=== PATIENT | female | born 1955 | race African-American/Black ===

== ENCOUNTER 2018-05-13 19:11 | Inpatient (IN) | payer OTHER ==
[~2018-05-13] VITALS: Ht 170.2 cm; Wt 127.0 kg
[2018-05-14] MEDS ORDERED: IPRATROPIUM BROMIDE (0.02%) 0.5MG/2.5ML NEB HHN STA (02:10)
[2018-05-14] MEDS ORDERED: ALBUTEROL (0.083%) 2.5MG/3ML NEB HHN STA (02:10)
[2018-05-14 02:43] LABS: BASOPHILS % 0.3 % (0.0-2.0); EOSINOPHILS % 2.1 % (0.0-5.0); HEMATOCRIT. 40.6 % (36.0-48.0); HEMOGLOBIN. 13.2 g/dL (12.0-16.0); LYMPHOCYTES % 26.6 % (20.0-50.0); MEAN CORPUSCULAR HEMOGLOBIN 28.7 pg (28.0-32.0); MEAN CORPUSCULAR VOLUME 88.7 fL (81.0-99.0); MEAN PLATELET VOLUME 10.1 fl (7.4-10.4); PLATELET 157 x1000/uL (130-400); RED BLOOD CELL COUNT 4.58 mill/uL (4.2-5.4); RED CELL DISTRIBUTION WIDTH 14.4 % (11.6-14.6)
[2018-05-14 02:49] LABS: CHLORIDE 112 mEq/L (98-107)
[2018-05-14] MEDS ORDERED: ACETAMINOPHEN 325MG TABLET PO ONE (05:30)
[2018-05-14] MEDS ORDERED: ONDANSETRON HCL 4MG/2ML INJ IV PRN (08:30)
[2018-05-14] MEDS ORDERED: IPRATROPIUM/ALBUTEROL 0.5-3(2.5)MG/3ML NEB HHN PRN (08:30)
[2018-05-14] MEDS ORDERED: GUAIFENESIN-DM 200MG-20MG/10ML UDC PO PRN (08:30)
[2018-05-14] MEDS: METHYLPREDNISOLONE SOD SUCC 40 MG/ML VIAL IV SCH ×2 (08:59→16:56)
[2018-05-14] MEDS: ACETAMINOPHEN 325MG TABLET PO PRN (09:38)
[2018-05-14] MEDS ORDERED: HYDR-3511 MT (10:13)
[2018-05-14] MEDS ORDERED: MAGN250T29 MT (10:13)
[2018-05-14] MEDS ORDERED: POTA25TA13 MT (10:13)
[2018-05-14] MEDS ORDERED: ASPI-1158 MT (10:15)
[2018-05-14] MEDS ORDERED: FURO-151 MT (10:15)
[2018-05-14] MEDS ORDERED: ATOR20TA65 MT (10:15)
[2018-05-14] MEDS ORDERED: ISOS120T9 MT (10:15)
[2018-05-14 12:01] VITALS: BP 129/41
[2018-05-14 12:02] VITALS: BP 129/79
[2018-05-14] MEDS: IPRATROPIUM/ALBUTEROL 0.5-3(2.5)MG/3ML NEB HHN SCH ×3 (12:21→20:55)
[2018-05-14 13:08] VITALS: BP 116/55
[2018-05-14] MEDS ORDERED: HYDR200T35 MT (13:13)
[2018-05-14] MEDS ORDERED: METH25VI63 SQ (13:13)
[2018-05-14] MEDS ORDERED: LORA10TA7 MT (13:15)
[2018-05-14] MEDS ORDERED: GABA-290 MT (13:15)
[2018-05-14] MEDS ORDERED: GLIP5POW MC (13:15)
[2018-05-14] MEDS ORDERED: METO25TA6 MT (13:15)
[2018-05-14] MEDS: HYDROCODONE/ACETAMINOPHEN 5/325MG TABLET PO PRN ×2 (14:18→21:09)
[2018-05-14 16:00] VITALS: BP 152/91
[2018-05-14] MEDS: MONTELUKAST SODIUM 10MG TABLET PO SCH (16:57)
[2018-05-14] MEDS ORDERED: FUROSEMIDE 40MG/4ML VIAL IVP NR (18:15)
[2018-05-14 20:00] VITALS: BP 140/72
[2018-05-14] MEDS: ENOXAPARIN 30MG/0.3ML SYR SUBCUT SCH (21:10)
[2018-05-15] VITALS: BP 151/95
[2018-05-15] MEDS: IPRATROPIUM/ALBUTEROL 0.5-3(2.5)MG/3ML NEB HHN SCH ×6 (00:39→20:58)
[2018-05-15] MEDS: METHYLPREDNISOLONE SOD SUCC 40 MG/ML VIAL IV SCH ×3 (01:10→17:33)
[2018-05-15] MEDS: HYDROCODONE/ACETAMINOPHEN 5/325MG TABLET PO PRN (01:10)
[2018-05-15] MEDS: ACETAMINOPHEN 325MG TABLET PO PRN ×3 (01:16→17:47)
[2018-05-15 04:00] VITALS: BP 119/69
[2018-05-15] MEDS ORDERED: METHOTREXATE SODIUM SQ SCH (04:45)
[2018-05-15 04:51] LABS: CLARITY URINE CLEAR (CLEAR); COLOR URINE YELLOW (YELLOW); KETONES URINE NEGATIVE (NEGATIVE); LEUKOCYTE ESTERASE URINE NEGATIVE (NEGATIVE); NITRITE URINE NEGATIVE (NEGATIVE); OCCULT BLOOD URINE NEGATIVE (NEGATIVE); PROTEIN URINE NEGATIVE (NEGATIVE); SPECIFIC GRAVITY URINE 1.011 (1.005-1.030); UROBILINOGEN URINE 0.2 E.U./dL (0.2-1.0)
[2018-05-15] MEDS ORDERED: HYDROCODONE/ACETAMINOPHEN 5/325MG TABLET PO PRN (05:00)
[2018-05-15 05:05] LABS: *BARBITURATES SCREEN URINE NEGATIVE (NEGATIVE); *BENZODIAZEPINES SCREEN URINE NEGATIVE (NEGATIVE)
[2018-05-15 05:06] LABS: *AMPHETAMINES SCREEN URINE NEGATIVE (NEGATIVE); *COCAINE SCREEN URINE NEGATIVE (NEGATIVE); CANNABINOID URINE SCREEN NEGATIVE (NEGATIVE); METHADONE URINE SCREEN NEGATIVE (NEGATIVE); OPIATES URINE SCREEN PRESUMTIVE POSITIVE (NEGATIVE); PHENCYCLIDINE URINE SCREEN NEGATIVE (NEGATIVE)
[2018-05-15 06:55] LABS: BASOPHILS % 0.1 % (0.0-2.0); HEMATOCRIT. 42.8 % (36.0-48.0); HEMOGLOBIN. 13.9 g/dL (12.0-16.0); LYMPHOCYTES % 12.5 % (20.0-50.0); MEAN CORPUSCULAR HEMOGLOBIN 28.8 pg (28.0-32.0); MEAN CORPUSCULAR VOLUME 88.6 fL (81.0-99.0); MEAN PLATELET VOLUME 10.2 fl (7.4-10.4); MONOCYTES % 2.6 % (2.0-8.0); NEUTROPHILS % 84.8 % (40.0-76.0); PLATELET 172 x1000/uL (130-400); RED BLOOD CELL COUNT 4.83 mill/uL (4.2-5.4); RED CELL DISTRIBUTION WIDTH 14.2 % (11.6-14.6)
[2018-05-15 08:00] VITALS: BP 149/89
[2018-05-15] MEDS ORDERED: MEDICATION NOT ON FORMULARY EA (Furosemide (Lasix) 1 TAB) MT SCH (09:00)
[2018-05-15] MEDS ORDERED: MEDICATION NOT ON FORMULARY EA (Magnesium Oxide (Magnesium) 1 TAB) MT SCH (09:00)
[2018-05-15] MEDS ORDERED: HYDROXYCHLOROQUINE SULFATE MT SCH (09:00)
[2018-05-15] MEDS ORDERED: MEDICATION NOT ON FORMULARY EA (Aspirin (Aspirin Ec) 1 TAB) MT SCH (09:00)
[2018-05-15] MEDS ORDERED: MEDICATION NOT ON FORMULARY EA (Metoprolol Tartrate 1 TAB) MT SCH (09:00)
[2018-05-15] MEDS ORDERED: MEDICATION NOT ON FORMULARY EA (Gabapentin 1 TAB) MT SCH (09:00)
[2018-05-15] MEDS ORDERED: FUROSEMIDE 40MG TABLET PO SCH (09:00)
[2018-05-15] MEDS ORDERED: [UNRECOGNIZED DRUG - OTHER] MT SCH (09:00)
[2018-05-15] MEDS: FUROSEMIDE 40MG/4ML VIAL IVP SCH (09:09)
[2018-05-15] MEDS: ASPIRIN 81MG EC TABLET PO SCH (09:10)
[2018-05-15] MEDS: GABAPENTIN 300MG CAPSULE PO SCH ×3 (09:10→17:33)
[2018-05-15] MEDS: HYDROXYCHLOROQUINE SULFATE 200MG TABLET PO SCH ×2 (09:10→17:41)
[2018-05-15] MEDS: LORATADINE 10MG TABLET PO SCH (09:10)
[2018-05-15] MEDS: METOPROLOL TARTRATE 25MG TABLET PO SCH ×2 (09:10→21:00)
[2018-05-15] MEDS: POTASSIUM BICARB/CIT ACID 25 MEQ TABLET.EFF PO SCH (09:10)
[2018-05-15] MEDS: ENOXAPARIN 30MG/0.3ML SYR SUBCUT SCH ×2 (09:13→21:18)
[2018-05-15] MEDS ORDERED: GUAIFENESIN/CODEINE 100-10MG/5ML UDC PO PRN (09:45)
[2018-05-15 10:31] LABS: CHLORIDE 108 mEq/L (98-107)
[2018-05-15] MEDS: FLUTICASONE PROPIONATE 50MCG/SPRAY BOTTLE BOTHNSTRLS SCH ×2 (12:24→21:19)
[2018-05-15] MEDS: ISOSORBIDE MONONITRATE 120MG TABLET SR 24HR PO SCH (12:24)
[2018-05-15 12:31] VITALS: BP 140/90
[2018-05-15 16:00] VITALS: BP 106/68
[2018-05-15] MEDS ORDERED: MONTELUKAST SODIUM 10MG TABLET PO SCH (17:00)
[2018-05-15] MEDS: MONTELUKAST SODIUM 10MG TABLET PO SCH (17:33)
[2018-05-15] MEDS: DOCUSATE SODIUM 250MG CAPSULE PO PRN (17:34)
[2018-05-15 20:00] VITALS: BP 101/59
[2018-05-15] MEDS: FAMOTIDINE 20MG/2ML VIAL IV SCH (21:18)
[2018-05-15] MEDS: ATORVASTATIN CALCIUM 20MG TABLET PO SCH (21:18)
[2018-05-16] VITALS: BP 110/69
[2018-05-16] MEDS: METHYLPREDNISOLONE SOD SUCC 40 MG/ML VIAL IV SCH ×3 (00:57→16:06)
[2018-05-16] MEDS: ACETAMINOPHEN 325MG TABLET PO PRN ×2 (00:58→16:07)
[2018-05-16] MEDS: IPRATROPIUM/ALBUTEROL 0.5-3(2.5)MG/3ML NEB HHN SCH ×6 (01:00→21:32)
[2018-05-16 07:54] LABS: BASOPHILS % 0.1 % (0.0-2.0); HEMATOCRIT. 40.3 % (36.0-48.0); LYMPHOCYTES % 12.9 % (20.0-50.0); MEAN CORPUSCULAR HEMOGLOBIN 28.7 pg (28.0-32.0); MEAN CORPUSCULAR VOLUME 88.7 fL (81.0-99.0); MEAN PLATELET VOLUME 9.7 fl (7.4-10.4); MONOCYTES % 3.1 % (2.0-8.0); NEUTROPHILS % 83.9 % (40.0-76.0); PLATELET 164 x1000/uL (130-400); RED BLOOD CELL COUNT 4.54 mill/uL (4.2-5.4); RED CELL DISTRIBUTION WIDTH 14.2 % (11.6-14.6)
[2018-05-16 08:00] VITALS: BP 117/75
[2018-05-16 08:00] LABS: CHLORIDE 105 mEq/L (98-107)
[2018-05-16] MEDS: METOPROLOL TARTRATE 25MG TABLET PO SCH ×2 (09:00→20:52)
[2018-05-16] MEDS: FLUTICASONE PROPIONATE 50MCG/SPRAY BOTTLE BOTHNSTRLS SCH ×2 (09:35→20:52)
[2018-05-16] MEDS: POTASSIUM BICARB/CIT ACID 25 MEQ TABLET.EFF PO SCH (09:35)
[2018-05-16] MEDS: FUROSEMIDE 40MG/4ML VIAL IVP SCH (09:36)
[2018-05-16] MEDS: FAMOTIDINE 20MG/2ML VIAL IV SCH ×2 (09:36→20:51)
[2018-05-16] MEDS: ASPIRIN 81MG EC TABLET PO SCH (09:36)
[2018-05-16] MEDS: DOCUSATE SODIUM 250MG CAPSULE PO PRN (09:37)
[2018-05-16] MEDS: HYDROXYCHLOROQUINE SULFATE 200MG TABLET PO SCH ×2 (09:37→17:09)
[2018-05-16] MEDS: LORATADINE 10MG TABLET PO SCH (09:37)
[2018-05-16] MEDS: ISOSORBIDE MONONITRATE 120MG TABLET SR 24HR PO SCH (09:37)
[2018-05-16] MEDS: GABAPENTIN 300MG CAPSULE PO SCH ×3 (09:38→17:09)
[2018-05-16] MEDS: ENOXAPARIN 30MG/0.3ML SYR SUBCUT SCH ×2 (09:38→20:51)
[2018-05-16] MEDS: GLIPIZIDE 5MG TABLET PO SCH (10:49)
[2018-05-16 11:46] VITALS: BP 104/67
[2018-05-16 15:57] VITALS: BP 107/74
[2018-05-16] MEDS: MONTELUKAST SODIUM 10MG TABLET PO SCH (17:09)
[2018-05-16 20:00] VITALS: BP 131/83
[2018-05-16] MEDS: ATORVASTATIN CALCIUM 20MG TABLET PO SCH (20:52)
[2018-05-17] VITALS: BP 115/69
[2018-05-17] MEDS: METHYLPREDNISOLONE SOD SUCC 40 MG/ML VIAL IV SCH ×3 (00:05→17:01)
[2018-05-17] MEDS: ACETAMINOPHEN 325MG TABLET PO PRN ×2 (00:11→09:49)
[2018-05-17] MEDS: IPRATROPIUM/ALBUTEROL 0.5-3(2.5)MG/3ML NEB HHN SCH ×6 (01:20→20:24)
[2018-05-17 04:00] VITALS: BP 139/92
[2018-05-17 08:00] VITALS: BP 134/77
[2018-05-17] MEDS: ENOXAPARIN 30MG/0.3ML SYR SUBCUT SCH ×2 (09:46→21:02)
[2018-05-17] MEDS: FLUTICASONE PROPIONATE 50MCG/SPRAY BOTTLE BOTHNSTRLS SCH ×2 (09:46→21:00)
[2018-05-17] MEDS: METOPROLOL TARTRATE 25MG TABLET PO SCH ×2 (09:47→21:01)
[2018-05-17] MEDS: ASPIRIN 81MG EC TABLET PO SCH (09:47)
[2018-05-17] MEDS: FUROSEMIDE 40MG/4ML VIAL IVP SCH (09:47)
[2018-05-17] MEDS: GABAPENTIN 300MG CAPSULE PO SCH ×3 (09:47→17:01)
[2018-05-17] MEDS: FAMOTIDINE 20MG/2ML VIAL IV SCH ×2 (09:48→21:00)
[2018-05-17] MEDS: ISOSORBIDE MONONITRATE 120MG TABLET SR 24HR PO SCH (09:48)
[2018-05-17] MEDS: LORATADINE 10MG TABLET PO SCH (09:48)
[2018-05-17] MEDS: POTASSIUM BICARB/CIT ACID 25 MEQ TABLET.EFF PO SCH (09:49)
[2018-05-17] MEDS: GLIPIZIDE 5MG TABLET PO SCH (09:49)
[2018-05-17] MEDS: HYDROXYCHLOROQUINE SULFATE 200MG TABLET PO SCH ×2 (09:54→17:01)
[2018-05-17] MEDS ORDERED: DEXTROSE 50% WATER 50ML SYRINGE IV PRN (12:15)
[2018-05-17] MEDS: INSULIN LISPRO 100 UNITS/ML SUBCUT SCH ×3 (12:19→21:24)
[2018-05-17] MEDS: BLOOD SUGAR DIAGNOSTIC STRIP TEST SCH ×3 (12:25→20:58)
[2018-05-17] MEDS: MONTELUKAST SODIUM 10MG TABLET PO SCH (17:01)
[2018-05-17 20:00] VITALS: BP 114/69
[2018-05-17] MEDS: ATORVASTATIN CALCIUM 20MG TABLET PO SCH (21:00)
[2018-05-18] VITALS: BP 128/79
[2018-05-18] MEDS: IPRATROPIUM/ALBUTEROL 0.5-3(2.5)MG/3ML NEB HHN SCH ×4 (00:31→13:28)
[2018-05-18] MEDS: METHYLPREDNISOLONE SOD SUCC 40 MG/ML VIAL IV SCH ×2 (00:50→09:20)
[2018-05-18] MEDS: ACETAMINOPHEN 325MG TABLET PO PRN ×2 (00:51→08:10)
[2018-05-18 04:00] VITALS: BP 125/76
[2018-05-18] MEDS: BLOOD SUGAR DIAGNOSTIC STRIP TEST SCH ×2 (07:10→12:16)
[2018-05-18] MEDS: INSULIN LISPRO 100 UNITS/ML SUBCUT SCH ×2 (07:30→12:26)
[2018-05-18 07:57] VITALS: BP 118/77
[2018-05-18] MEDS: FAMOTIDINE 20MG/2ML VIAL IV SCH (09:00)
[2018-05-18] MEDS: HYDROXYCHLOROQUINE SULFATE 200MG TABLET PO SCH (09:20)
[2018-05-18] MEDS: GABAPENTIN 300MG CAPSULE PO SCH ×2 (09:20→12:23)
[2018-05-18] MEDS: FUROSEMIDE 40MG/4ML VIAL IVP SCH (09:20)
[2018-05-18] MEDS: ASPIRIN 81MG EC TABLET PO SCH (09:20)
[2018-05-18] MEDS: ENOXAPARIN 30MG/0.3ML SYR SUBCUT SCH (09:20)
[2018-05-18] MEDS: METOPROLOL TARTRATE 25MG TABLET PO SCH (09:20)
[2018-05-18] MEDS: ISOSORBIDE MONONITRATE 120MG TABLET SR 24HR PO SCH (09:21)
[2018-05-18] MEDS: LORATADINE 10MG TABLET PO SCH (09:21)
[2018-05-18] MEDS: FLUTICASONE PROPIONATE 50MCG/SPRAY BOTTLE BOTHNSTRLS SCH (09:23)
[2018-05-18] MEDS: POTASSIUM BICARB/CIT ACID 25 MEQ TABLET.EFF PO SCH (09:23)
[2018-05-18 12:00] VITALS: BP 107/69
[2018-05-18 12:40] VITALS: BP 118/77
== END 2018-05-18 14:25 | disposition home or self-care (01) | DRG 291 ==
LOC: ER 19:11 → 8WST 05-14 05:07 → EDBEDREQ 05-14 05:08 → ENRESERV 05-14 07:14 → 8WST 05-14 08:43
PROVIDERS: ADMIT Internal Medicine; ATTEND Internal Medicine
PROC: 5A09357 Assistance with Respiratory Ventilation, Less than 24 Consecutive Hours, Continuous Positive Airway Pressure (ICD-10-PCS; principal; 2018-05-14)
PROC: 5A09357 Assistance with Respiratory Ventilation, Less than 24 Consecutive Hours, Continuous Positive Airway Pressure (ICD-10-PCS; 2018-05-15)
PROC: 5A09357 Assistance with Respiratory Ventilation, Less than 24 Consecutive Hours, Continuous Positive Airway Pressure (ICD-10-PCS; 2018-05-16)
PROC: 5A09357 Assistance with Respiratory Ventilation, Less than 24 Consecutive Hours, Continuous Positive Airway Pressure (ICD-10-PCS; 2018-05-17)
PROC: 5A09357 Assistance with Respiratory Ventilation, Less than 24 Consecutive Hours, Continuous Positive Airway Pressure (ICD-10-PCS; 2018-05-18)
DX: I11.0 Hypertensive heart disease with heart failure (principal); J96.00 Acute respiratory failure, unspecified whether with hypoxia or hypercapnia; E66.2 Morbid (severe) obesity with alveolar hypoventilation; E87.0 Hyperosmolality and hypernatremia; J44.0 Chronic obstructive pulmonary disease with (acute) lower respiratory infection; J44.1 Chronic obstructive pulmonary disease with (acute) exacerbation; I50.33 Acute on chronic diastolic (congestive) heart failure; E11.9 Type 2 diabetes mellitus without complications; E87.8 Other disorders of electrolyte and fluid balance, not elsewhere classified; E78.5 Hyperlipidemia, unspecified; M06.9 Rheumatoid arthritis, unspecified; J20.9 Acute bronchitis, unspecified; Z80.3 Family history of malignant neoplasm of breast; Z82.49 Family history of ischemic heart disease and other diseases of the circulatory system; Z88.0 Allergy status to penicillin; Z79.82 Long term (current) use of aspirin; Z79.899 Other long term (current) drug therapy; Z71.3 Dietary counseling and surveillance; Z79.84 Long term (current) use of oral hypoglycemic drugs
CPT/HCPCS: 36415; 71045; 80048; 80061; 80305; 82962; 83036; 83605; 83735; 83880; 84443; 84484; 93005; 93306; 94640; 94660; 96374; 99285; J1650; J1815; J1940; J2405; J2920; J3490; J7611; J7620

== ENCOUNTER 2020-12-18 18:23 | Emergency (ER) | payer OTHER ==
[~2020-12-18] VITALS: Ht 167.6 cm; Wt 90.0 kg
[~2020-12-18 18:23] MED LIST: ASPI-1406 MT; ATOR20TA65 MT; FURO-151 MT; GABA-290 MT; GLIP5POW MC; HYDR-3512 MT; HYDR200T35 MT; ISOS120T9 MT; LORA10TA7 MT; MAGN250T29 MT; METH25VI63 SQ; POTA25TA13 MT
[2020-12-18 18:41] VITALS: BP 117/58
== END 2020-12-18 20:07 | disposition left against medical advice (07) ==
LOC: ER 18:23
DX: R10.9 Unspecified abdominal pain (principal); Z53.21 Procedure and treatment not carried out due to patient leaving prior to being seen by health care provider
CPT/HCPCS: 93005